=== PATIENT | female | born 1995 | race Caucasian/White ===

== ENCOUNTER 2018-07-12 20:08 | Emergency (ER) | payer BC ==
[2018-07-12 21:48] VITALS: BP 115/61
--- NOTE | 2018-07-12 22:17 | UC ---
UC General HPI - HPI Summary HPI Summary: PT IS C/O A 2 DAY HX VAGINAL ITCHING, BURNING, DISCHARGE AND SOME REDNESS WITH SWELLING ON THE OUTSIDE. NO FEVER, ABDOMINAL PAIN OR DYSURIA. SHE HAD UNPROTECTED SEX ABOUT 1 WEEK AGO. - History of Current Complaint Chief Complaint: UCGeneralIllness Stated Complaint: URINARY COMPLAINT Time Seen by Provider: 07/12/18 22:10 Hx Obtained From: Patient Hx Last Menstrual Period: 05/31/18 Pain Intensity: 3 Associated Signs & Symptoms: Negative: Abdominal Pain, Fever - Allergy/Home Medications Allergies/Adverse Reactions: Allergies Allergy/AdvReac Type Severity Reaction Status Date / Time Penicillins Allergy Rash Verified 07/12/18 23:02 Home Medications: Home Medications Bcp 1 tab DAILY 07/12/18 [History Confirmed 07/12/18] Escitalopram Oxalate [Lexapro 10 mg] 1 tab DAILY 07/12/18 [History Confirmed ] PMH/Surg Hx/FS Hx/Imm Hx Psychological History: Depression - Family History Known Family History: Positive: Non-Contributory - Social History Occupation: Student Alcohol Use: Occasionally Substance Use Type: None Smoking Status (MU): Never Smoked Tobacco Review of Systems All Other Systems Reviewed And Are Negative: Yes Constitutional: Negative: Fever Gastrointestinal: Negative: Abdominal Pain Genitourinary: Positive: Vaginal/Penile Burning, Vaginal/Penile Itching, Vaginal /Penile Discharge, Vaginal/Penile Pain Physical Exam Triage Information Reviewed: Yes Appearance: Well-Appearing Vital Signs: Initial Vital Signs Temp 97.5 F 07/12/18 21:42 Pulse 84 07/12/18 21:42 Resp 16 07/12/18 21:42 BP 115/61 07/12/18 21:42 Pulse Ox 100 07/12/18 21:42 Vital Signs Reviewed: Yes Eyes: Positive: Conjunctiva Clear ENT: Positive: Pharynx normal, TMs normal. Negative: Nasal congestion, Nasal drainage Neck: Positive: Supple, Nontender, No Lymphadenopathy Respiratory: Positive: Lungs clear, Normal breath sounds Cardiovascular: Positive: RRR, No Murmur Abdomen Description: Positive: Nontender, No Organomegaly, Soft Bowel Sounds: Positive: Present Pelvic Exam: Positive: Other - No odor. The labia minora and less involved majora is red and very tender with mild swelling. There are no blisters or ulcerations. The vagina is red, tender and has moderated thick yellow-green exudates. The cervix is red but has no discharge. Cultures obtained. No CMT or mass on bimanual exam. Musculoskeletal: Positive: ROM Intact Neurological: Positive: Alert Psychological: Positive: Age Appropriate Behavior Skin Exam: Normal Course/Dx - Course Course Of Treatment: pt called her mother and the pcn allergy is a rash only thus I will tx for presumptive GC/Chlamydia with Rocephine and Zithromax. - Diagnoses Provider Diagnosis: Vaginitis and vulvovaginitis Discharge - Sign-Out/Discharge Documenting (check all that apply): Patient Departure All imaging exams completed and their final reports reviewed: No Studies - Discharge Plan Condition: Stable Disposition: HOME Patient Education Materials: Sexually Transmitted Diseases (ED), Vaginitis (ED) Referrals: JACKIE GUZMÁN [[facility], APPLICATION, OTHER] - 7 Days - Billing Disposition and Condition Condition: STABLE Disposition: Home - Attestation Statements Provider Attestation: Per institutional requirements, I have reviewed the chart, however, I was not consulted specifically or made aware of this patient by the midlevel provider. I did not personally evaluate, interact with , or disposition this patient. Addendum entered and electronically signed by Bailee Nelson PA 07/12/18 23:02 :
[2018-07-12] MEDS ORDERED: cefTRIAXone VIAL(*) 250 MG VIAL IM ONE (22:35)
[2018-07-12] MEDS ORDERED: Lidocaine 1% MPF* 2 ML VIAL INJ ONE (22:40)
[2018-07-12] MEDS ORDERED: Azithromycin TAB* 250 MG PO ONE (22:41)
[2018-07-14 12:44] LABS: Neisseria gonorrhoeae (GC) RNA Negative (Negative)
[2018-07-14 13:04] LABS: Trichomonas vaginalis Result Negative (Negative)
[2018-07-14 23:35] LABS: HSV 1 PCR Negative (Negative); Herpes Source VAGINAL
== END 2018-07-12 23:16 | disposition home or self-care (01) ==
LOC: UCCORT 20:08
DX: N76.0 Acute vaginitis (principal); F32.9 Major depressive disorder, single episode, unspecified; Z79.899 Other long term (current) drug therapy; Z88.0 Allergy status to penicillin
CPT/HCPCS: 81003; 87086; 87480; 87491; 87510; 87529; 87591; 87661; 96372; 99202; A9270-GY; G0463; J0696